=== PATIENT | female | born 1965 | race Asian ===

== ENCOUNTER 2018-05-07 23:09 | Emergency (ER) | payer SELFPAY ==
[~2018-05-07] VITALS: Ht 160 cm; Wt 45.0 kg
[2018-05-07 23:23] VITALS: Ht 160 cm; Wt 45.0 kg
[2018-05-08 00:05] LABS: BASOPHIL % 0.3 % (0-2); PLATELET COUNT 229 x10^3mcL (130-400); RED CELL DISTRIBUTION WIDTH 14.1 % (11.5-14.5)
[2018-05-08 00:10] LABS: ALBUMIN 4.3 g/dL (3.4-5.0); ALKALINE PHOSPHATASE 96 U/L (46-116); ALT/SGPT 26 U/L (14-59); AST/SGOT 24 U/L (15-37); BILIRUBIN TOTAL 0.4 mg/dL (0.20-1.00); CALCIUM 9.4 mg/dL (8.5-10.1); CHLORIDE SERUM 102 mmol/L (98-107); CREATININE SERUM 0.8 mg/dL (0.6-1.0); GFR1 > 60 mL/min; GLUCOSE SERUM 157 mg/dL (74-106); LIPASE 169 IU/L (73-393); SODIUM SERUM 138 mmol/L (136-145); TOTAL PROTEIN, SERUM 8.2 g/dL (6.4-8.2)
[2018-05-08 01:45] VITALS: BP 116/79
== END 2018-05-08 01:45 | disposition home or self-care (01) ==
LOC: ED 23:09
PROVIDERS: Emergency Medicine
DX: E86.0 Dehydration (principal); R10.33 Periumbilical pain; R11.10 Vomiting, unspecified
CPT/HCPCS: 87046; 87046-59; J1885; J2405; J3010; J7030